=== PATIENT | female | born 1955 | race Two or more races ===

== ENCOUNTER 2021-10-20 16:37 | Emergency (ER) | payer OTHER ==
[~2021-10-20] VITALS: Ht 162.6 cm; Wt 68.9 kg
[2021-10-20] MEDS ORDERED: SINUS RINSE PR1 EACH NASAL (19:20)
[2021-10-20] MEDS ORDERED: FLONASE ALLERG9.9 ML NASAL (19:20)
[2021-10-20] MEDS ORDERED: ZYRTEC10 M3 PO (19:20)
[2021-10-20] MEDS ORDERED: NAPROXEN SODIU275 MG PO (19:21)
== END 2021-10-20 19:53 | disposition home or self-care (01) ==
LOC: ER 16:37
DX: B34.9 Viral infection, unspecified (principal); J06.9 Acute upper respiratory infection, unspecified; Z20.822 Contact with and (suspected) exposure to COVID-19; J30.89 Other allergic rhinitis

== ENCOUNTER 2023-07-14 10:22 | Emergency (ER) | payer OTHER ==
[~2023-07-14] VITALS: Ht 162.6 cm; Wt 71.7 kg
[~2023-07-14 10:22] MED LIST: FLONASE ALLERG9.9 ML NASAL; NAPROXEN SODIU275 MG PO; SINUS RINSE PR1 EACH NASAL; ZYRTEC10 M3 PO
[2023-07-14] MEDS ORDERED: ALENDRONATE SODI5 MG PO (10:29)
[2023-07-14] MEDS ORDERED: DICLOFENAC SODI75 MG PO (12:56)
== END 2023-07-14 13:00 | disposition home or self-care (01) ==
LOC: ER 10:22
DX: M25.562 Pain in left knee (principal); M54.9 Dorsalgia, unspecified
CPT/HCPCS: 96372; 99284; J1885; J3301

== ENCOUNTER 2025-08-28 11:42 | Emergency (ER) | payer OTHER ==
[~2025-08-28] VITALS: Ht 160 cm; Wt 69.4 kg
[~2025-08-28 11:42] MED LIST changes: +ALENDRONATE SODI5 MG PO; +DICLOFENAC SODI75 MG PO
[2025-08-28] MEDS ORDERED: FAMOTIDINE/PF 20 MG/2 ML VIAL IV PUSH STA (13:44)
[2025-08-28] MEDS ORDERED: ONDANSETRON HCL 2 MG/ML VIAL IV STA (13:44)
[2025-08-28] MEDS ORDERED: HYOSCYAMINE SULFATE 0.125 MG TAB.SUBL SL STA (13:45)
[2025-08-28] MEDS ORDERED: ONDANSETRON HCL 2 MG/ML VIAL ONE (14:17)
[2025-08-28] MEDS ORDERED: FAMOTIDINE/PF 20 MG/2 ML VIAL ONE (14:18)
[2025-08-28] MEDS ORDERED: HYOSCYAMINE SULFATE 0.125 MG TAB.SUBL ONE (14:18)
[2025-08-28 14:22] LABS: BASO % 1.4 % (0.1-1.2); EOS # 0.36 (0.04-0.54); EOS % 6.1 % (0.7-7.0); LYMPH # 2.16 (1.18-3.74); LYMPH % 36.9 % (19.3-53.1); MEAN PLATELET VOLUME 10.50 fl (9.4-12.4); MONO # 0.50 (0.24-0.82); MONO % 8.5 % (4.7-12.5); NEUT # 2.75 (1.56-6.13); NEUT % 46.9 % (34.0-71.1); RED CELL DISTRIBUTION WIDTH 13.4 % (11.6-14.4)
[2025-08-28 15:07] LABS: ALT/SGPT 22.0 U/L (12-78); AST/SGOT 19.0 U/L (15-37); BILIRUBIN TOTAL 0.43 mg/dL (0.3-1.2); BUN CREA RATIO 27.0 (7.0-25.0); CREATININE SERUM 0.56 mg/dL (0.55-1.02); GFR 107.34; GLOBULINA 3.6 G/DL (2.4-3.5); GLUCOSE FASTING 98.0 mg/dL (65-100); OSMOLALITY SERUM 280.0 MOSM/KG (275-295)
== END 2025-08-28 16:42 | disposition home or self-care (01) ==
LOC: ER 11:42
PROVIDERS: General Practice
DX: R10.84 Generalized abdominal pain (principal); R10.9 Unspecified abdominal pain

== ENCOUNTER 2025-10-17 11:35 | Emergency (ER) | payer OTHER ==
[~2025-10-17] VITALS: Ht 160 cm; Wt 68.0 kg
[2025-10-17] MEDS ORDERED: OMEPRAZOLE20 MG PO (12:12)
[2025-10-17 12:13] VITALS: BP 135/95; O2SAT 97
[2025-10-17] MEDS ORDERED: DEXAMETHASONE SODIUM PHOSPHATE 4 MG/ML VIAL IM ONE (14:15)
[2025-10-17] MEDS ORDERED: KETOROLAC TROMETHAMINE 60 MG VIAL IM ONE (14:15)
[2025-10-17 15:39] LABS: BASO % 0.8 % (0.1-1.2); EOS # 0.02 (0.04-0.54); EOS % 0.6 % (0.7-7.0); LYMPH # 1.61 (1.18-3.74); LYMPH % 44.5 % (19.3-53.1); MEAN PLATELET VOLUME 10.70 fl (9.4-12.4); MONO # 0.59 (0.24-0.82); NEUT # 1.36 (1.56-6.13); NEUT % 37.5 % (34.0-71.1); RED CELL DISTRIBUTION WIDTH 13.2 % (11.6-14.4)
[2025-10-17 15:43] LABS: MONO % 16.3 % (4.7-12.5)
[2025-10-17 15:44] LABS: INR 0.99
[2025-10-17 15:53] LABS: ALT/SGPT 25.0 U/L (12-78); AST/SGOT 23.0 U/L (15-37); BILIRUBIN TOTAL 0.31 mg/dL (0.3-1.2); BUN CREA RATIO 20.0 (7.0-25.0); CREATININE SERUM 0.7 mg/dL (0.55-1.02); GFR 82.97; GLOBULINA 4.3 G/DL (2.4-3.5); GLUCOSE FASTING 133.0 mg/dL (65-100); OSMOLALITY SERUM 278.0 MOSM/KG (275-295)
[2025-10-17 16:49] LABS: URINE APPEARANCE Clear; URINE BILIRRUBIN Negative (NEGATIVE); URINE BLOOD Moderate; URINE COLOR Dark Yellow; URINE GLUCOSE Negative (NEGATIVE); URINE KETONE 15 (NEGATIVE); URINE LEUKOCYTE Trace; URINE NITRATE Negative; URINE PROTEIN 30 (NEGATIVE); URINE UROBILINOGEN 1.0 E.U./dl
[2025-10-17 16:50] LABS: URINE BACTERIA 37.1 uL (0.0-1933); URINE CAST 2.05 uL (0.0-1.40); URINE EPITHELIAL CELLS 10.6 uL (0.0-38.8); URINE RBC 307.4 uL (0.0-20.8); URINE WBC 64.7 uL (0.0-23.2)
[2025-10-17] MEDS ORDERED: OSEL75CA PO (16:51)
[2025-10-17 17:25] LABS: COVID-19 AG NEGATIVE (NEGATIVE)
== END 2025-10-17 22:01 | disposition home or self-care (01) ==
LOC: ER 11:36
DX: J10.1 Influenza due to other identified influenza virus with other respiratory manifestations (principal); Z20.822 Contact with and (suspected) exposure to COVID-19
CPT/HCPCS: 36415; 71046; 93005; 96372; 99283; J1100; J1885